=== PATIENT | female | born 1960 | race Two or more races ===

== ENCOUNTER 2019-10-14 09:00 | Inpatient (IN) | payer OTHER ==
[2019-10-14] MEDS ORDERED: COZAAR25 MG PO (10:47)
[2019-10-14] MEDS ORDERED: DULOXE PO (10:48)
[2019-10-14] MEDS ORDERED: SYNTHROID150 MCG PO (10:48)
[2019-10-14] MEDS ORDERED: ATORVASTATIN CA20 MG PO (10:48)
[2019-10-14] MEDS ORDERED: BUSPIR PO (10:49)
[2019-10-21] MEDS ORDERED: DULOXETINE HCL60 MG (08:49)
[2019-10-21] MEDS ORDERED: BUSPIRONE HCL15 MG (08:49)
[2019-10-21] MEDS ORDERED: LAMICTAL200 MG (08:50)
[2019-10-21] MEDS ORDERED: LOSARTAN POTAS100 MG (08:51)
[2019-10-21] MEDS ORDERED: HYDROCHLOROTHIA25 MG (08:51)
[2019-10-24] MEDS ORDERED: OMEPRAZOLE20 MG PO (14:42)
[2019-10-24] MEDS ORDERED: PERCOCET 5-3251 EACH PO (14:42)
== END 2019-10-24 15:40 | disposition home or self-care (01) | DRG 331 ==
LOC: O/R 10-21 07:00 → SURH 10-21 08:45
PROVIDERS: ADMIT Surgery; ATTEND Surgery
PROC: 0DJD8ZZ Inspection of Lower Intestinal Tract, Via Natural or Artificial Opening Endoscopic (ICD-10-PCS; 2019-10-21)
PROC: 0DTN4ZZ Resection of Sigmoid Colon, Percutaneous Endoscopic Approach (ICD-10-PCS; principal; 2019-10-21 08:45)
DX: K57.32 Diverticulitis of large intestine without perforation or abscess without bleeding (principal); I10 Essential (primary) hypertension; Z20.828 Contact with and (suspected) exposure to other viral communicable diseases

== ENCOUNTER 2021-02-06 10:09 | Day surgery (SDC) | payer OTHER ==
[~2021-02-06 10:09] MED LIST: ATORVASTATIN CA20 MG PO; BUSPIR PO; BUSPIRONE HCL15 MG; COZAAR25 MG PO; DULOXE PO; DULOXETINE HCL60 MG; HYDROCHLOROTHIA25 MG; LAMICTAL200 MG; LOSARTAN POTAS100 MG; OMEPRAZOLE20 MG PO; PERCOCET 5-3251 EACH PO; SYNTHROID150 MCG PO
== END 2021-02-06 14:45 | disposition home or self-care (01) ==
LOC: AMB-ENDOS 10:09
PROVIDERS: ATTEND Surgery
DX: K62.1 Rectal polyp (principal); K64.8 Other hemorrhoids; Z20.822 Contact with and (suspected) exposure to COVID-19